=== PATIENT | female | born 1945 | race American Indian/Alaskan Native ===

== ENCOUNTER → 2019-06-07 | Outpatient (CLI) | payer OTHER ==
[~2019-06-07] MED LIST: AMLO5 PO; ASPI81CH PO; ASPI81EC PO; ATOR40TA PO; BUTASPCAFT PO; CYCL10 PO; GABA300T24 PO; HYDACE10B PO; LEVSOD100 PO; LEVSOD150 PO; LORA.5 PO; LOSA25 PO; MELA3 PO; OXYC10TA19 PO; RANI150 PO; SERT100 PO; SULFATRIM 800-120 ML PO; TRAZ150T57 PO; Toprol Xl50 MG PO
[2019-06-12 14:07] LABS: HPV 16 Negative (Negative); HPV 18 Negative (Negative); HPV OTHER HR TYPES Negative (Negative)
== END | disposition home or self-care (01) ==
LOC: OLS 13:06 → LAB SHORT 13:06
PROVIDERS: Nurse Practitioner Women's Health
DX: Z12.4 Encounter for screening for malignant neoplasm of cervix (principal)
CPT/HCPCS: 87624; G0123

== ENCOUNTER 2020-12-01 12:13 | Inpatient (IN) | payer OTHER ==
[~2020-12-01] VITALS: Ht 167.6 cm; Wt 86.2 kg
[2020-12-01 12:42] LABS: BASOPHILS ABSOLUTE AUTO 0.04 K/mm3 (0.00-0.23); BASOPHILS PERCENT AUTO 0 % (0-2); EOSINOPHILS ABSOLUTE AUTO 0.04 K/mm3 (0.00-0.68); EOSINOPHILS PERCENT AUTO 0 % (0-6); Hematocrit 44.3 % (33.0-51.0); IMMATURE GRAN ABSOLUTE AUTO 0.04 K/mm3 (0.00-0.10); IMMATURE GRAN PERCENT AUTO 0 % (0-1); LYMPHOCYTES ABSOLUTE AUTO 0.55 K/mm3 (0.84-5.20); LYMPHOCYTES PERCENT AUTO 4 % (21-46); MONOCYTES ABSOLUTE AUTO 0.55 K/mm3 (0.16-1.47); MONOCYTES PERCENT AUTO 4 % (4-13); Mean Corpuscular HGB 30.5 pg (26.0-34.0); Mean Corpuscular HGB Conc 33.9 g/dL (31.5-36.5); Mean Corpuscular Volume 90 fL (80-100); Mean Platelet Volume 10.5 fL (9.1-12.4); NEUTROPHILS ABSOLUTE AUTO 11.27 K/mm3 (1.96-9.15); NEUTROPHILS PERCENT AUTO 90 % (41-73); Platelet Count 204 K/mm3 (150-400); RDW Coefficient Variation 12.1 % (11.7-14.2); RDW Standard Deviation 40.1 fL (35.1-46.3); Red Blood Cell Count 4.92 M/mm3 (3.80-5.20); White Blood Cell Count 12.49 K/mm3 (4.00-11.30)
[2020-12-01 13:00] LABS: Alanine Aminotransfer (ALT/SGP 288 U/L (12-78); Albumin, Blood 4.4 g/dL (3.4-5.0); Albumin/Globulin Ratio 1.2 (0.8-1.8); Alk Phos 312 U/L (50-136); Anion Gap 4 mmol/L (6-16); Aspartate Aminotrans (AST/SGOT 289 U/L (12-37); Blood Urea Nitrogen 9 mg/dL (8-24); Bun/Creatinine Ratio 13.7 (12.0-20.0); CO2, Blood 30 mmol/L (21-32); Calcium, Blood 9.3 mg/dL (8.5-10.1); Chloride, Blood 102 mmol/L (98-108); Creatinine, Blood 0.66 mg/dL (0.40-1.00); Globulin, Blood 3.7 g/dL (2.2-4.0); Glomerular Filtration Rate >60 (60-); Glucose, Blood 117 mg/dL (70-99); Potassium, Blood 3.8 mmol/L (3.5-5.5); Sodium, Blood 136 mmol/L (136-145); Total Protein, Blood 8.1 g/dL (6.4-8.2)
[2020-12-01] MEDS ORDERED: ARMOUR THYROID90 M1 PO (14:30)
[2020-12-01] MEDS ORDERED: SUCR1 PO (22:49)
[2020-12-01] MEDS ORDERED: FAMO20 PO (22:50)
--- NOTE | 2020-12-01 23:58 | NUR ---
PT AGREES TO STUDENT PARTICIPATING IN CARE
[2020-12-02 00:04] LABS: Influenza A, PCR NEGATIVE (NEGATIVE); Influenza B, PCR NEGATIVE (NEGATIVE); Resp Syncytial Virus, PCR NEGATIVE (NEGATIVE); SARS-Cov-2 (COVID-19) PCR, MMC NEGATIVE (NEGATIVE)
[2020-12-02 05:16] LABS: BASOPHILS ABSOLUTE AUTO 0.02 K/mm3 (0.00-0.23); BASOPHILS PERCENT AUTO 0 % (0-2); EOSINOPHILS ABSOLUTE AUTO 0.08 K/mm3 (0.00-0.68); EOSINOPHILS PERCENT AUTO 1 % (0-6); Hematocrit 37.5 % (33.0-51.0); Hemoglobin 12.7 g/dL (11.5-16.0); IMMATURE GRAN ABSOLUTE AUTO 0.04 K/mm3 (0.00-0.10); IMMATURE GRAN PERCENT AUTO 1 % (0-1); LYMPHOCYTES ABSOLUTE AUTO 0.78 K/mm3 (0.84-5.20); LYMPHOCYTES PERCENT AUTO 9 % (21-46); MONOCYTES ABSOLUTE AUTO 0.32 K/mm3 (0.16-1.47); MONOCYTES PERCENT AUTO 4 % (4-13); Mean Corpuscular HGB 30.6 pg (26.0-34.0); Mean Corpuscular HGB Conc 33.9 g/dL (31.5-36.5); Mean Corpuscular Volume 90 fL (80-100); NEUTROPHILS ABSOLUTE AUTO 7.13 K/mm3 (1.96-9.15); NEUTROPHILS PERCENT AUTO 85 % (41-73); Platelet Count 143 K/mm3 (150-400); RDW Coefficient Variation 12.6 % (11.7-14.2); RDW Standard Deviation 41.6 fL (35.1-46.3); Red Blood Cell Count 4.15 M/mm3 (3.80-5.20); White Blood Cell Count 8.37 K/mm3 (4.00-11.30)
[2020-12-02 05:40] LABS: Alanine Aminotransfer (ALT/SGP 158 U/L (12-78); Albumin, Blood 3.4 g/dL (3.4-5.0); Albumin/Globulin Ratio 1.1 (0.8-1.8); Alk Phos 229 U/L (50-136); Anion Gap 3 mmol/L (6-16); Aspartate Aminotrans (AST/SGOT 104 U/L (12-37); Bilirubin, Total 1.1 mg/dL (0.1-1.0); Blood Urea Nitrogen 9 mg/dL (8-24); Bun/Creatinine Ratio 11.9 (12.0-20.0); CO2, Blood 30 mmol/L (21-32); Calcium, Blood 8.3 mg/dL (8.5-10.1); Chloride, Blood 104 mmol/L (98-108); Creatinine, Blood 0.75 mg/dL (0.40-1.00); Globulin, Blood 3.1 g/dL (2.2-4.0); Glomerular Filtration Rate >60 (60-); Glucose, Blood 105 mg/dL (70-99); Potassium, Blood 3.5 mmol/L (3.5-5.5); Sodium, Blood 137 mmol/L (136-145); Total Protein, Blood 6.5 g/dL (6.4-8.2)
--- NOTE | 2020-12-02 07:30 | NUR ---
SHIFT SUMMARY PT NEW ADMIT THIS AM. [id number]. NPO. DISCOMFORT DECREASED WITH 50mcg FENTANYL X2 SINCE ADMISSION. NO NAUSEA/EMESIS. ABD PAIN TO RLQ, INCREASES WITH AMBULATION. ORIENTED TO ROOM + CALL LIGHT USE. IVF PER ORDERS. COVID SWAB NEGATIVE, IV 20g RIGHT AC FLOWS FREELY, SURGICAL PACKET ON FRONT OF CHART. REPORT TO DAY SHIFT RN. PT CURRENTLY RESTING IN BED WITH CALL LIGHT IN REACH.
--- NOTE | 2020-12-02 09:30 | NUR ---
PT TO DAY SURGERY VIA [facility]
--- NOTE | 2020-12-02 14:04 | NUR ---
POST-OP PT RETURNED FROM OR. PT IS A/O X4, VSS. MICHAEL DRAIN PRESENT, BRIGHT RED DRAINAGE AT THIS TIME. LAP SITES X3 WITH GAUZE AND OPSITE OVER, C/D/I AT THIS TIME. NO DRAINAGE FROM DRESSINGS PRESENT. DENIES PAIN OR NAUSEA. SIPS AND CHIPS AT THIS TIME.
--- NOTE | 2020-12-02 17:36 | NUR ---
SHIFT SUMMARY PT IS A/O X4, VSS. PT DENIES NAUSEA AND VOMITTING, TOLERATING CLEAR LIQUIDS AT THIS TIME. PT REPORTS PAIN TO BE TOLERABLE AFTER MEDICATED PER EMAR. MICHAEL DRAIN IN PLACE AND DRAINING BRIGHT RED FLUID. PT HAS BEEN PLEASANT AND COOPERATIVE T/O SHIFT. CALL LIGHT IN REACH, WILL CONTINUE TO MONITOR UNTIL REPORT GIVEN TO ONCOMING RN.
--- NOTE | 2020-12-03 06:13 | NUR ---
SUMMARY PT TOLERATING PO FLUIDS AND VOIING WITHOUT DIFF.TAKING PO PAIN MEDS TONIGHT WTIH 1 DOSE IV MED FOR BREAKTHROUGH.
--- NOTE | 2020-12-03 18:17 | NUR ---
SHIFT SUMMARY PT A/O X4, VSS. PAIN HAS BEEN TOLERABLE T/O SHIFT W/ PAIN MEDICATION PER EMAR. TOLERATING REGULAR DIET WELL. UP IN ROOM INDEPENDENTLY T/O SHIFT AND AMBULATED IN HALLWAY VERY WELL. PT REPORTS PASSING GAS MULTIPLE TIMES. X3 LAP DRESSINGS IN PLACE, C/D/I. WILL CONTINUE TO MONITOR UNTIL REPORT GIVEN TO ONCOMING RN.
--- NOTE | 2020-12-03 19:20 | NUR ---
ASSUMED CARE FROM DAY SHIFT STUDENT NURSE
--- NOTE | 2020-12-04 04:41 | NUR ---
SHIFT SUMMARY: POD 2. PT HAD SURGERY FOR GANGRENOUS CHOLECYSTITIS. MICHAEL DRAIN DRAINING AND IN TACT. PT IS INDEPENDENT IN ROOM AND IS A REGULAR DIET. PT SHOULD BE DISCHARGED TODAY. PT HAS BEEN GETTING NORCO 2 TABS Q 6 HRS, WHICH SEEMS TO BE HELPING HER PAIN. PT HAS A HX OF HYPERTENSION, FIBROMYALGIA, AND A HX OF COLONIC OBSTRUCTION. VSS. PT IS PLEASANT.
--- NOTE | 2020-12-04 06:23 | NUR ---
POD 2 S/P LAP DARCI. PT VSS T/O NIGHT. HR TRENDING 50'S, METOPROLOL HELD R/T YOHANA HR; PT ASYMPTOMATIC. DRESSIGNS CDI, MICHAEL PUT OUT APPX 10ML LIGHT PINK SS DRNG. PT HAD NO C/O N/V, IS PASSING FLATUS, NO BM THIS SHIFT. PAIN MGD W/2 NORCO W/REP RELIEF. PT UP INDEP IN ROOM, BILLY WELL, IS USING CALL LIGHT FOR ASSISTANCE.
[2020-12-04] MEDS ORDERED: Norco 5-325 Ta1 EACH PO (11:22)
[2020-12-04] MEDS ORDERED: AMOCLA500 PO (11:23)
--- NOTE | 2020-12-04 11:57 | NUR ---
DISCHARGE EATING, DRINKING, VOIDING, & PASSING LOTS OF GAS. AMBULATING EASILY. PAIN WELL CONTROLLED. NORCO SCRIPT SENT W/ PT & ABX FAXED TO [facility].
== END 2020-12-04 12:10 | disposition home or self-care (01) | DRG 419 ==
LOC: ER 12:13 → SURS 12:14
PROVIDERS: Physician Assistant; Surgery; ADMIT Internal Medicine
PROC: 0FT44ZZ Resection of Gallbladder, Percutaneous Endoscopic Approach (ICD-10-PCS; principal; 2020-12-02 10:00)
DX: K81.0 Acute cholecystitis (principal); K82.A1 Gangrene of gallbladder in cholecystitis; I10 Essential (primary) hypertension; Z20.822 Contact with and (suspected) exposure to COVID-19; M79.7 Fibromyalgia; E03.9 Hypothyroidism, unspecified; F32.9 Major depressive disorder, single episode, unspecified; Z87.891 Personal history of nicotine dependence
CPT/HCPCS: 0241U; 36415; 74181; 76705; 80053; 83690; 85025; 88304; 93005; 93010; 96361; 96365; 96375; 96376; 99285-25; A9270; A9270-GY; G0378; J1100; J1885; J2250; J2405; J2543; J2704; J2710; J3010; J7030; J7050; J7120

== ENCOUNTER 2022-11-04 07:27 | Day surgery (SDC) | payer OTHER ==
--- NOTE | 2022-11-03 12:32 | NUR ---
ALLERGY AND MEDICATION LISTS RECONCILED WITH PATIENT OVER THE PHONE.
[~2022-11-04] VITALS: Ht 165.1 cm; Wt 84.3 kg
[~2022-11-04 07:27] MED LIST changes: +ALLERTEC PO; +AMOCLA500 PO; +ARMOUR THYROID90 M1 PO; +FAMO20 PO; +LEVOTHYROXINE175 MC9 PO; +METO50ER PO; +Norco 5-325 Ta1 EACH PO; +OXYC10ER PO; +ROSU5 PO; +SUCR1 PO; -Toprol Xl50 MG PO; +VERA180ER PO
--- NOTE | 2022-11-04 08:08 | NUR ---
Ambulatory in Day Surgery History, Chart, Medications and Allergies reviewed before start of procedure. Pre-Op teaching done. Pt verbalizes understanding. Patient States Post-Procedure ride home has been arranged.
--- NOTE | 2022-11-04 08:28 | NUR ---
11/04/22 0828 Adrian Lilly HISTORY, CHART, MEDICATIONS AND ALLERGIES REVIEWED BEFORE START OF PROCEDURE. PATIENT CONFIRMS NPO STATUS AND AGREES WITH SCHEDULED PROCEDURE. 3-LEAD EKG REVIEWED WITH PHYSICIAN PRIOR TO START OF PROCEDURE. MONITOR INTACT WITH CONTINUOUS PULSE OXIMETRY,CAPNOGRAPHY, 3-LEAD EKG, INTERMITTENT BP. SUPPLEMENTAL O2 TO BE TITRATED THROUGHOUT PROCEDURE TO MAINTAIN O2 SATURATION ABOVE 90%. PATIENT DETERMINED TO BE ASA APPROPRIATE FOR PROPOFOL SEDATION PRIOR TO START OF PROCEDURE BY
--- NOTE | 2022-11-04 09:28 | NUR ---
Discharge instructions reviewed with patient. Patient verbalizes understanding. Copy given to patient to take home. Patient States Post-Procedure ride home has been arranged. Discharged via wheelchair to private car for ride home.
== END 2022-11-04 23:00 | disposition home or self-care (01) ==
LOC: ORSCMMR 07:27 → ORD 08:30 → ORSCMMR 08:30
PROVIDERS: Internal Medicine Gastroenterology
PROC: 0DBK8ZX Excision of Ascending Colon, Via Natural or Artificial Opening Endoscopic, Diagnostic (ICD-10-PCS; principal; 2022-11-04 08:30)
DX: K62.5 Hemorrhage of anus and rectum (principal); D12.2 Benign neoplasm of ascending colon; K64.8 Other hemorrhoids; Z86.010 Personal history of colon polyps; I10 Essential (primary) hypertension; E03.9 Hypothyroidism, unspecified; Z79.82 Long term (current) use of aspirin; F32.A Depression, unspecified; E78.00 Pure hypercholesterolemia, unspecified; Z79.899 Other long term (current) drug therapy
CPT/HCPCS: 88305; J2704; J7120

== ENCOUNTER 2023-03-19 11:19 | Emergency (ER) | payer OTHER ==
[~2023-03-19] VITALS: Ht 165.1 cm; Wt 86.2 kg
[2023-03-19 11:39] VITALS: BP 150/65
[2023-03-19] MEDS ORDERED: PRED20 PO (12:28)
== END 2023-03-19 12:39 | disposition home or self-care (01) ==
LOC: ER 11:19
DX: M25.532 Pain in left wrist (principal); I10 Essential (primary) hypertension; E03.9 Hypothyroidism, unspecified; Z79.82 Long term (current) use of aspirin; Z79.899 Other long term (current) drug therapy; Z87.891 Personal history of nicotine dependence
CPT/HCPCS: 29125; 99283-25; J7512